=== PATIENT | female | born 1980 | race Caucasian/White ===

== ENCOUNTER 2018-07-11 13:51 | Outpatient (REF) | payer OTHER, SELFPAY ==
[2018-07-11 19:01] LABS: HCT 41.3 % (36.0-46.0); HGB 13.6 g/dL (12.0-15.5); Mean Corp. HGB Concentration 32.9 g/dL (32.0-36.0); Mean Corpuscular Hemoglobin 27.9 pg (27.0-33.0); Mean Corpuscular Volume 84.8 fL (80-95); Mean Platelet Volume 12.2 fL (8.0-11.0); Platelet Count 235 x1000/uL (130-400); RBC 4.87 m/cumm (4.00-5.20); RBC Distribution Width 13.6 % (11.7-14.6); White Blood Cell Count 10.73 k/cumm (4.4-10.8)
[2018-07-11 19:26] LABS: Anion Gap 7.6 mmol/L (3-11); BUN 12 mg/dL (7-18); CO2 28.4 mmol/L (21.0-32.0); Calcium 8.3 mg/dL (8.5-10.1); Chloride 105 mmol/L (98-107); Glucose 99 mg/dL (70-100); Potassium 3.4 mmol/L (3.5-5.1); Sodium 141 mmol/L (136-145)
[2018-07-12 23:10] LABS: Campylobacter PCR SEE COMMENTS; Salmonella PCR SEE COMMENTS; Shiga Toxin PCR SEE COMMENTS; Shigella/Enteroinvasive Ecoli SEE COMMENTS
== END 2018-07-11 14:11 ==
LOC: NCHCN 13:51
PROVIDERS: PCP Nurse Practitioner Family; Visit Provider Nurse Practitioner Family
DX: R19.7 Diarrhea, unspecified (principal)
CPT/HCPCS: 80048; 85027; 87505

== ENCOUNTER 2019-04-16 08:47 | Outpatient (REF) | payer OTHER, SELFPAY ==
[2019-04-16 20:33] LABS: HCT 41.4 % (36.0-46.0); HGB 13.3 g/dL (12.0-15.5); Mean Corp. HGB Concentration 32.1 g/dL (32.0-36.0); Mean Corpuscular Hemoglobin 28.2 pg (27.0-33.0); Mean Corpuscular Volume 87.9 fL (80-95); Mean Platelet Volume 11.8 fL (8.0-11.0); Platelet Count 223 x1000/uL (130-400); RBC 4.71 m/cumm (4.00-5.20); RBC Distribution Width 14.1 % (11.7-14.6); White Blood Cell Count 7.03 k/cumm (4.4-10.8)
[2019-04-16 20:54] LABS: Anion Gap 6.9 mmol/L (3-11); BUN 13 mg/dL (7-18); CO2 28.1 mmol/L (21.0-32.0); CREATININE 0.71 mg/dL (0.55-1.02); Calcium 8.6 mg/dL (8.5-10.1); Chloride 106 mmol/L (98-107); Glucose 103 mg/dL (70-100); Potassium 4.7 mmol/L (3.5-5.1); Sodium 141 mmol/L (136-145); TSH 3.56 uIU/mL (0.36-3.74)
== END 2019-04-16 09:07 ==
LOC: NCHCN 08:47
PROVIDERS: PCP Nurse Practitioner Family; Visit Provider Nurse Practitioner Family
DX: Z13.220 Encounter for screening for lipoid disorders (principal)
CPT/HCPCS: 80048; 85027; 84443

== ENCOUNTER 2019-04-18 02:36 | Outpatient (CLI) | payer OTHER, SELFPAY ==
--- NOTE | 2019-04-18 08:20 | DI.MRI_ITS ---
SYMPTOM/DIAGNOSIS: RT LUMBAR RADICULOPATHY, NUMBNESS RT LEG, BILAT LEG PAIN, S/P FALL LUMBOSACRAL SPINE MRI: MRI examination of the lumbosacral spine was performed according to the usual protocol. There is no significant bony signal abnormality seen. Conus medullaris appears intact. Bony spinal canal and neural foramina appear intact. Note is made of decreased signal of the L 4-5 intervertebral disc on T 2 weighted imaging consistent with disc degeneration. There is a moderate disc bulge at this level. Question of a minimal superimposed central disc herniation is raised. No evidence of impingement. There is mild disc bulge at L 5-S 1 without evidence of disc herniation. Mild facet hypertrophic degenerative changes noted at L 4-5 and L 5-S 1. CONCLUSION: Disc degeneration and facet degenerative changes at L 4-5. Question tiny central disc herniation, no evidence of impingement.
== END 2019-04-18 02:56 ==
PROVIDERS: PCP Nurse Practitioner Family; Visit Provider Nurse Practitioner Family
DX: M51.36 Other intervertebral disc degeneration, lumbar region (principal)
CPT/HCPCS: 72148

== ENCOUNTER 2020-06-11 18:06 | Outpatient (REF) | payer OTHER, SELFPAY ==
[2020-06-14 23:45] LABS: Patient Race White; SARS-CoV-2 RNA Undetected (Undetected); SARS-CoV-2 Specimen Source Nasopharynx
== END 2020-06-11 18:26 ==
LOC: NCHCN 18:06
PROVIDERS: PCP Nurse Practitioner Family; Visit Provider Physician Assistant
DX: R50.9 Fever, unspecified (principal); R05 Cough
CPT/HCPCS: U0003

== ENCOUNTER 2020-07-29 09:44 | Outpatient (REF) | payer OTHER, SELFPAY ==
[2020-07-29 20:16] LABS: Anion Gap 6.7 mmol/L (3-11); BUN 11 mg/dL (7-18); CO2 26.3 mmol/L (21.0-32.0); CREATININE 0.64 mg/dL (0.55-1.02); Calcium 8.5 mg/dL (8.5-10.1); Chloride 105 mmol/L (98-107); Glucose 93 mg/dL (74-106); Potassium 4.6 mmol/L (3.5-5.1); Sodium 138 mmol/L (136-145)
== END 2020-07-29 10:04 ==
LOC: NCHCN 09:44
PROVIDERS: PCP Nurse Practitioner Family; Visit Provider Nurse Practitioner Family
DX: E28.2 Polycystic ovarian syndrome (principal)
CPT/HCPCS: 80048

== ENCOUNTER 2020-08-31 20:50 | Outpatient (REF) | payer OTHER, SELFPAY ==
[2020-08-31 20:14] LABS: HCT 42.7 % (36.0-46.0); HGB 13.6 g/dL (11.2-15.7); MCHC 31.9 % (32.0-36.0); MCV 87.9 fL (80-95); MPV 11.9 fL (8.0-11.0); Platelet Count 261 10^3/uL (130-400); RBC 4.86 10^6/uL (3.93-5.22); RDW 13.8 % (11.7-14.6); WBC 10.51 10^3/uL (4.4-10.8)
[2020-08-31 20:23] LABS: Iron 47 ug/dL (50-170); Total Iron Binding Capacity 286 ug/dL (250-450); Transferrin Sat 16 % (15-50)
[2020-08-31 20:34] LABS: TSH (W/Ref FT4) 2.42 uIU/mL (0.36-3.74)
== END 2020-08-31 21:10 ==
LOC: NCHCN 20:50
PROVIDERS: PCP Nurse Practitioner Family; Visit Provider Nurse Practitioner Family
DX: R53.83 Other fatigue (principal)
CPT/HCPCS: 85027; 83540; 83550; 84443

== ENCOUNTER 2021-12-22 15:07 | Outpatient (REF) | payer OTHER, SELFPAY ==
[2021-12-23 20:16] LABS: COVID-19 RT-PCR UVMMC Result Negative (Negative)
== END 2021-12-22 15:08 | disposition home or self-care (01) ==
LOC: NCHCN 15:07
PROVIDERS: PCP Nurse Practitioner Family; Visit Provider Physician Assistant
DX: Z20.822 Contact with and (suspected) exposure to COVID-19 (principal); J06.9 Acute upper respiratory infection, unspecified
CPT/HCPCS: U0003

== ENCOUNTER 2022-01-17 22:05 | Outpatient (REF) | payer OTHER, SELFPAY ==
[2022-01-17 19:45] LABS: Bilirubin Negative (Negative); Blood Moderate (Negative); Clarity Clear (Clear); Glucose Negative (Negative); Ketones Negative (Negative); Leukocyte Esterase Small (Negative); Nitrite Positive (Negative); Specific Gravity >= 1.030 (1.005-1.025); Urobilinogen 0.2 EU/dL (Up TO 0.2); pH 5.5 (5-8)
[2022-01-17 20:06] LABS: Bacteria Moderate HPF (Negative); C & S Indicated? Yes; Casts Negative LPF (Negative); Crystals Few Calcium Oxalate HPF (Negative); Epithelial Cells Few HPF (Negative); Mucus Negative (Negative); RBC 20-50 HPF (0-2); WBC >50 HPF (0-5)
== END 2022-01-17 22:06 | disposition home or self-care (01) ==
LOC: NCHCN 22:05
PROVIDERS: PCP Nurse Practitioner Family; Visit Provider Nurse Practitioner Family
DX: R35.0 Frequency of micturition (principal)
CPT/HCPCS: 81003; 81015; 87086

== ENCOUNTER 2022-07-13 15:30 | Outpatient (REF) | payer OTHER, SELFPAY ==
[2022-07-13 18:56] LABS: Abs Immature Grans 0.05 10^3/uL (0.0-0.06); Absolute Basophil Count 0.08 10^3/uL (0.0-0.2); Absolute Eosinophil Count 0.32 10^3/uL (0.0-0.7); Absolute Neutrophil Count 5.53 10^3/uL (1.2-6.7); Basophils % 0.9; Eosinophils % 3.4; HCT 43.1 % (36.0-46.0); HGB 13.6 g/dL (11.2-15.7); Immature Grans % 0.5; Lymphocytes % 29.9; MCH 27.8 pg (27.0-33.0); MCHC 31.6 % (32.0-36.0); MCV 88 fL (80-95); MPV 11.5 fL (8.0-11.0); Monocytes % 6.4; Neutrophils % 58.9; Platelet Count 228 10^3/uL (130-400); RDW 13.2 % (11.7-14.6); RDW-SD 42.5 fL; WBC 9.38 10^3/uL (4.4-10.8)
[2022-07-13 19:04] LABS: ESR 4 mm/hr (0-20)
[2022-07-13 19:18] LABS: ALT 28 U/L (14-59); AST 21 U/L (15-37); Albumin 3.7 g/dL (3.4-5.0); Alkaline Phosphatase 65 U/L (46-116); Anion Gap 6.5 mmol/L (3-11); BUN 13 mg/dL (7-18); Bilirubin, Total 0.4 mg/dL (0.2-1.0); CO2 27.5 mmol/L (21.0-32.0); CREATININE 0.7 mg/dL (0.55-1.02); Calcium 8.8 mg/dL (8.5-10.1); Chloride 107 mmol/L (98-107); Estimated GFR 110.67 (mL/min/1.73m2); Glucose 90 mg/dL (74-106); Potassium 4.6 mmol/L (3.5-5.1); Sodium 141 mmol/L (136-145); Total Protein 7.1 g/dL (6.4-8.2)
[2022-07-13 20:14] LABS: Hemoglobin A1C 5.8 % (<5.7)
== END 2022-07-13 15:31 | disposition home or self-care (01) ==
LOC: NCHCN 15:30
PROVIDERS: PCP Nurse Practitioner Family; Visit Provider Nurse Practitioner Family
DX: R07.9 Chest pain, unspecified (principal); R35.0 Frequency of micturition; R53.83 Other fatigue; R53.81 Other malaise
CPT/HCPCS: 80053; 85652; 83036; 85025

== ENCOUNTER 2022-10-05 00:44 | Outpatient (CLI) | payer OTHER, SELFPAY ==
--- NOTE | 2022-10-05 | ETT_ITS ---
APPROVED REPORT Exam: Exercise Treadmill Patient Location: Out-Patient Room/Bed: Stress Nurse: Polly Banks RN Ordering Provider:FELI MULLIGAN, Contact Number: [phone] BMI: 39.77 Baseline Rhythm: Sinus Rhythm Indications: Chest pain Medical History Medical History: Anxiety, depression, hirsutism, PCOS, tobacco use Cardiac Medications: Spironolactone, omeprazole, albuterol sulfate, cymbalta Allergies: None Cardiac Risk Factors: +current smoker, obesity Previous Cardiac Procedures: None Pretest Chest Pain Characteristics: None Exercise History: Indeterminate Physical Disabilities: None Lung Sounds: Lungs clear, more diminished at bases Heart Sounds: Regular, distant Stress Test Details Test: Exercise stress testing was performed using a Saurav protocol. Rest Stress HR Resting HR Supine: 51 bpm Max Heart Rate (APMHR): 178 bpm Resting HR Standin bpm Target HR (85% APMHR): 151 bpm Max HR Achieved: 156 bpm % of APMHR: 88 Recovery HR: 85 bpm HR response to stress: Normal HR response to stress BP Resting BP Supine: 126/86 mmHg Resting BP Standin/82 mmHg Max BP: 190/74 mmHg Recovery BP: 142/66 mmHg BP response to stress: Normal blood pressure response to stress. ECG Resting ECG: Sinus Rhythm Ectopy: None Stress ECG: Sinus Tachycardia ST Change: No significant ST segment changes noted Arrhythmia: Rare PVC Recovery ECG: Sinus Rhythm Recovery ST Change: No significant ST segment changes noted Recovery Arrhythmia: PAC Clinical Reason for Termination: Fatigue Stress Symptoms: General Fatigue Exercise duration: 9 min26 sec Highest Stage Reached: Stage 4: 4.2 mph at 16% grade. Exercise capacity: 10.85 METs Angina Score: None Funez Treadmill Score: 8.6 Rate Pressure Product: [id number] Stress ECG Conclusion 1. Resting electrocardiogram showed first-degree AV block 2. Patient exercised on the Saurav protocol and completed a workload of 10.85 METS 3. Normal heart rate and blood pressure response to exercise. Patient achieved 88% of predicted hear t rate for age 4. There was no electrocardiographic evidence of myocardial ischemia 5. There were no significant dysrhythmias Funez Treadmill Score is 8.6 which is Low risk. Stress Test Summary STAGE Time (mins) Speed (mph) Grade (%) HR BP SpO2 SYMPTOMS METS Supine 51 126/86 Standing 65 134/87 1 3 1.7 10 102 158/74 4.5 2 6 2.5 12 120 178/72 7 3 9 3.4 14 148 198/88 10 4 12 4.2 16 154 13 1 min recovery 124 190/74 3 min recovery 86 180/68 6 min recovery 85 142/66
== END 2022-10-05 01:04 ==
PROVIDERS: PCP Nurse Practitioner Family; Visit Provider Nurse Practitioner Family
DX: R07.9 Chest pain, unspecified (principal)
CPT/HCPCS: 93017

== ENCOUNTER 2025-02-24 17:38 | Outpatient (REF) | payer OTHER, SELFPAY ==
[2025-02-24 20:33] LABS: ALT 22 U/L (14-59); AST 16 U/L (15-37); Albumin 3.6 g/dL (3.4-5.0); Alkaline Phosphatase 56 U/L (46-116); BUN 17 mg/dL (7-18); Bilirubin, Total 0.3 mg/dL (0.2-1.0); CREATININE 0.9 mg/dL (0.55-1.02); Calcium 8.9 mg/dL (8.5-10.1); Chloride 106 mmol/L (98-107); Estimated GFR 80.34 (mL/min/1.73m2); Folate 8.7 ng/mL (8.6-20.0); Glucose 94 mg/dL (74-106); Potassium 4.2 mmol/L (3.5-5.1); Sodium 141 mmol/L (136-145); TSH (W/Ref FT4) 1.78 uIU/mL (0.36-3.74); Total Protein 6.6 g/dL (6.4-8.2); Vitamin B12 296 pg/mL (193-986)
== END 2025-02-24 17:39 | disposition home or self-care (01) ==
LOC: NCHCN 17:38
PROVIDERS: PCP Nurse Practitioner Family; Visit Provider Nurse Practitioner Family
DX: R63.4 Abnormal weight loss (principal); R20.0 Anesthesia of skin
CPT/HCPCS: 80053; 82607; 82746; 84443